=== PATIENT | female | born 1995 | race Two or more races ===

== ENCOUNTER 2020-12-24 11:44 | Emergency (ER) | payer BC, OTHER ==
[~2020-12-24] VITALS: Ht 160 cm; Wt 68.0 kg
[2020-12-24 11:44] VITALS: BP 119/67
[2020-12-24] MEDS ORDERED: SODIUM CHLORIDE 0.9% 1,000 ML IV ONE (13:15)
[2020-12-24 13:24] LABS: Urine Bacteria MOD /hpf (None Seen); Urine Blood 3+ /uL (Negative); Urine Mucus FEW (None Seen); Urine Specific Gravity 1.029 (1.001-1.035); Urine WBC 10 /hpf (0 - 5)
[2020-12-24 14:05] LABS: Basophils # (auto) 0 10 ^3/uL (0-0.2); Basophils % (auto) 0.2 % (0.0-2.0); Eosinophils # (auto) 0 10 ^3/uL (0-0.8); Eosinophils % (auto) 0.1 % (0.0-7.0); Lymphocytes # (auto) 0.5 10 ^3/uL (0.4-5.4); Monocytes # (auto) 0.5 10 ^3/uL (0-1.3); Red Cell Distribution Width 13.2 % (11.8-14.3)
[2020-12-24 14:06] LABS: Hematocrit 45.3 % (36.0-46.0); Hemoglobin 15.1 g/dL (12.2-16.2); Lymphocytes % (auto) 4.5 % (10.0-50.0); Mean Corpuscular Hemoglobin 27.2 pg (28.0-32.0); Mean Corpuscular Hgb Conc. 33.3 g/dL (32.0-36.0); Mean Corpuscular Volume 81.7 fL (80.0-100.0); Monocytes % (auto) 3.8 % (0.0-12.0); Neutrophils % (auto) 91.4 % (37.0-80.0); Red Blood Cells 5.55 10^6/uL (4.0-5.20); White Blood Cell 12.1 10^3/uL (4.4-10.8)
[2020-12-24 14:37] LABS: Albumin 4.3 g/dL (3.4-5.0); Anion Gap 4 (5-15); Blood Urea Nitrogen 11 mg/dL (7-18); Carbon Dioxide 25 mmol/L (21-32); Chloride 109 mmol/L (98-107); Glucose 85 mg/dL (74-106); Sodium 138 mmol/L (136-145)
[2020-12-24 14:52] LABS: Alanine Aminotransferase 28 U/L (13-56); Alkaline Phosphatase 77 U/L (45-117); Aspartate Aminotransferase 17 U/L (15-37); BUN/Creatinine Ratio 14.9; Bilirubin, Total 0.8 mg/dL (0.2-1.0); GFR African American 124 mL/min; GFR Non-African American 102 mL/min; Total Protein 8.3 g/dL (6.4-8.2)
== END 2020-12-24 16:07 | disposition home or self-care (01) ==
LOC: ER 11:47
DX: S09.8XXA Other specified injuries of head, initial encounter (principal); R55 Syncope and collapse; N39.0 Urinary tract infection, site not specified; F41.9 Anxiety disorder, unspecified; W18.09XA Striking against other object with subsequent fall, initial encounter; Y93.89 Activity, other specified; Y92.89 Other specified places as the place of occurrence of the external cause; Y99.8 Other external cause status
CPT/HCPCS: 36415; 70450; 80053; 81001; 82962; 84484; 85025; 93005

== ENCOUNTER 2020-12-27 18:47 | Emergency (ER) | payer BC ==
[~2020-12-27] VITALS: Ht 160 cm; Wt 68.9 kg
[2020-12-27 20:56] VITALS: BP 118/85
[2020-12-27] MEDS ORDERED: ONDANSETRON ODT 4 MG TAB PO ONE (22:00)
[2020-12-27 22:39] LABS: Urine Bacteria FEW /hpf (None Seen); Urine Blood 2+ /uL (Negative); Urine Mucus FEW (None Seen); Urine Specific Gravity 1.045 (1.001-1.035); Urine WBC 9 /hpf (0 - 5)
== END 2020-12-28 00:07 | disposition home or self-care (01) ==
LOC: ER 18:47
DX: S09.90XA Unspecified injury of head, initial encounter (principal); R10.84 Generalized abdominal pain; R11.0 Nausea; F17.290 Nicotine dependence, other tobacco product, uncomplicated; X58.XXXA Exposure to other specified factors, initial encounter; Y93.89 Activity, other specified; Y92.89 Other specified places as the place of occurrence of the external cause; Y99.8 Other external cause status
CPT/HCPCS: 36415; 81001; 81025; 87426; 99283; Q0162